=== PATIENT | female | born 1960 | race Caucasian/White ===

== ENCOUNTER → 2017-08-13 | Outpatient (CLI) | payer MEDICARE, BC, MEDICAID ==
[~2017-08-13] MED LIST: ACTICIN 5% CREA60 G1 TOP; ANALGESIC BA28.35 GM TP; ANALGESIC325 MG PO; ASPIRIN325 PO; ATIVAN1 MG PO; BACTRIM DS TAB1 EACH PO; BACTROBAN CREAM30 G1 TOP; BIAXIN 500 MG500 M1; CARVEDILOL3.125 MG PO; CILOSTAZOL 100100 MG PO; CIPRO250 M1 PO; CORTISONE57 GM TP; DIFLUCAN150 MG PO; DOXYCYCLINE 10100 MG PO; GLUCOPHAGE1000 MG PO; GLUMETZA500 PO; GLYBURIDE 2.52.5 MG PO; ISOSORBIDE DINI20 M1 PO; LANTUS SOL100 UNIT/1 SUBQ; LORAZEPAM 1 MG T1 M1 PO; MEDROLDOSEPACK PO; NITROGLYCERIN0.4 MG SUBLING; PERCOCET 5-3251 EACH PO; PREVACID30 M1 PO; RANITIDINE 150150 MG PO; SIMVASTATIN20 MG PO; ZOCOR 20 MG TAB20 M1; ZOCOR20 MG PO; ZOFRAN ODT4 MG PO; [UNRECOGNIZED DRUG - OTHER] PO; [UNRECOGNIZED DRUG - OTHER] PO
== END ==
LOC: M.RAD 09:23
DX: Z12.31 Encounter for screening mammogram for malignant neoplasm of breast (principal)

== ENCOUNTER 2018-12-16 10:49 | Emergency (ER) | payer BC, MEDICAID ==
[~2018-12-16] VITALS: Ht 165.1 cm; Wt 89.4 kg
[2018-12-16] MEDS ORDERED: GLYBURIDE 2.52.5 MG PO (10:54)
[2018-12-16] MEDS ORDERED: ATIVAN1 MG PO (10:55)
[2018-12-16] MEDS ORDERED: EFFER-K 10 MEQ10 ME1 PO (10:55)
[2018-12-16] MEDS ORDERED: METFORMIN HCL500 MG PO (10:55)
[2018-12-16 13:30] VITALS: BP 130/70
== END 2018-12-16 13:31 | disposition home or self-care (01) ==
LOC: M.ERS 10:49
DX: S22.32XA Fracture of one rib, left side, initial encounter for closed fracture (principal); E11.9 Type 2 diabetes mellitus without complications; F17.210 Nicotine dependence, cigarettes, uncomplicated; Z86.73 Personal history of transient ischemic attack (TIA), and cerebral infarction without residual deficits; Z90.49 Acquired absence of other specified parts of digestive tract; Z90.710 Acquired absence of both cervix and uterus; Z88.2 Allergy status to sulfonamides; Z88.5 Allergy status to narcotic agent; Z88.0 Allergy status to penicillin; Z91.040 Latex allergy status; Z88.1 Allergy status to other antibiotic agents; Z88.6 Allergy status to analgesic agent; V89.2XXA Person injured in unspecified motor-vehicle accident, traffic, initial encounter; Y93.89 Activity, other specified; Y92.89 Other specified places as the place of occurrence of the external cause; Y99.8 Other external cause status

== ENCOUNTER 2021-05-02 02:24 | Emergency (ER) | payer BC, MEDICAID ==
[~2021-05-02] VITALS: Ht 162.6 cm; Wt 90.7 kg
[~2021-05-02 02:24] MED LIST changes: +ATIVAN0.5 M1 PO; +EFFER-K 10 MEQ10 ME1 PO; +METFORMIN HCL500 MG PO
[2021-05-02] MEDS ORDERED: VAZALORE81 MG PO (02:44)
[2021-05-02] MEDS ORDERED: LEXAPRO20 MG PO (02:45)
[2021-05-02] MEDS ORDERED: KLOR-CON 1010 MEQ PO (02:48)
[2021-05-02] MEDS ORDERED: ARTIFICIAL TEAR1510 OPHTHALMIC (02:50)
[2021-05-02] MEDS ORDERED: DULCOLAX STOOL100 M1 PO (02:51)
[2021-05-02] MEDS ORDERED: EPIPEN JR0.15 MG/01 IM (02:51)
[2021-05-02] MEDS ORDERED: PROAIR HFA8.5 GM INH (02:52)
[2021-05-02] MEDS ORDERED: ONDANSETRON ODT4 MG PO (02:52)
[2021-05-02] MEDS ORDERED: NYSTATIN1 EA10 TOP (02:53)
[2021-05-02] MEDS ORDERED: NIZORAL A-D125 ML TOP (02:55)
[2021-05-02 04:55] VITALS: BP 124/60
== END 2021-05-02 04:55 | disposition home or self-care (01) ==
LOC: M.ERS 02:24
DX: S62.662A Nondisplaced fracture of distal phalanx of right middle finger, initial encounter for closed fracture (principal); E11.9 Type 2 diabetes mellitus without complications; F17.210 Nicotine dependence, cigarettes, uncomplicated; Z86.73 Personal history of transient ischemic attack (TIA), and cerebral infarction without residual deficits; Z90.710 Acquired absence of both cervix and uterus; Z90.49 Acquired absence of other specified parts of digestive tract; Z79.84 Long term (current) use of oral hypoglycemic drugs; Z79.82 Long term (current) use of aspirin; Z79.51 Long term (current) use of inhaled steroids; Z79.891 Long term (current) use of opiate analgesic; Z79.899 Other long term (current) drug therapy; Z88.1 Allergy status to other antibiotic agents; Z88.5 Allergy status to narcotic agent; Z91.041 Radiographic dye allergy status; Z88.0 Allergy status to penicillin; Z88.6 Allergy status to analgesic agent; Z88.2 Allergy status to sulfonamides; Z88.7 Allergy status to serum and vaccine; W23.1XXA Caught, crushed, jammed, or pinched between stationary objects, initial encounter; Y93.89 Activity, other specified; Y92.89 Other specified places as the place of occurrence of the external cause; Y99.8 Other external cause status